=== PATIENT | female | born 1940 | race Caucasian/White ===

== ENCOUNTER 2017-05-09 10:25 | Day surgery (SDC) | payer MEDICARE, OTHER, SELFPAY ==
[2017-05-06 12:22] VITALS: BMI 31.7
[2017-05-09] VITALS (13 sets, daily range): BP systolic 128–199; BP diastolic 54–86; PULSE 73–99; RESP 12–22; TEMP 36.7–36.9; O2SAT 92–100
--- NOTE | 2017-05-09 12:56 | P.PCN_ITS ---
[facility] Procedure Note Procedure Note:: Colonoscopy Procedure Report: Colonoscopy with cold snare polypectomy, submucosal injection of Eleview, snare cautery and Endo Clip placement Endoscopist: Efrain Hickey II, MD Referring physician: Terry Green M.D. Date of Procedure: May 09, 2017 Equipment: Olympus 180 variable stiffness pediatric colonoscope Sedation: Fentanyl 200 mg IV/ Versed 9 mg IV Indication: Mrs. Blank is a 76-year-old female who is here for initial screening colonoscopy. She did have a recent Cologuard stool test and the results are not available. She was referred for colonoscopy. The patient reports no abdominal pain, weight loss, change in her bowel habits or rectal bleeding. She states that her first cousin had colon cancer. Procedure: Prior to the procedure, a history and physical exam was performed, and patient' s medications and allergies were reviewed. The risks, benefits and alternatives of the sedation and procedure were discussed with the patient. All questions were answered and informed consent was obtained. The patient was brought to the procedure room. Patient identification and proposed procedure were verified by the physician and the nurse. The patient was placed in a left lateral decubitus position and the scope was passed under direct vision. Throughout the procedure, the patient's blood pressure, pulse, and oxygen saturations were monitored continuously. The colonoscopy was accomplished without difficulty. The patient tolerated the procedure well. Findings: On digital rectal examination there was normal rectal tone. There were no external hemorrhoids. The colonoscope was introduced through the anal canal to the rectum and advanced to the cecum. The ileocecal valve and appendiceal orifice were identified. The scope was advanced a short distance into the ileum which appeared grossly normal. The scope was then withdrawn into the colon. There were 3 diminutive colon polyps identified in the cecum ?1 and transverse ?2. These ranged in size from 5-6 mm and were all removed via cold snare polypectomy. There were scattered diverticuli throughout the descending and sigmoid colon (LEFT colon). Within the rectosigmoid colon was a very large laterally spreading granular polyp that had some surface irregularity and probable dysplasia. This was approximately 30-35 mm in width (3.5 cm) and 30 mm in depth. The base of this was raised using submucosal injection of Eleview and approximately 9-10 cc were utilized. Next, snare cautery was utilized to completely excise this polyp in piecemeal resection. Subsequent to the complete removal, soft coagulation was used to cauterize the edges of the post polypectomy site. 3 endoclips were placed over the base or polypectomy site to close the site to provide sealing and prevention of post polypectomy bleeding. The rectum itself was normal. Upon retroflexion within the rectum there were grade 1 internal hemorrhoids. Impression: 1. Large 3.0-3.5 cm rectosigmoid sessile polyp (laterally spreading granular sessile polyp) status post piecemeal removal 2. 3 additional diminutive colon polyps 3. Left-sided diverticulosis 4. Grade 1 internal hemorrhoids Plan: I will follow-up the polyp histology and recommend repeat sigmoidoscopy in 3-6 months based upon the histologic findings of the very advanced adenomatous rectosigmoid polyp. I would recommend full screening/surveillance colonoscopy again in 2 years. I will discuss the findings with the patient and family.
== END 2017-05-09 13:25 | disposition home or self-care (01) ==
PROVIDERS: PCP Nurse Practitioner Family; Visit Provider Internal Medicine Gastroenterology
PROC: 0DJD8ZZ Inspection of Lower Intestinal Tract, Via Natural or Artificial Opening Endoscopic (ICD-10-PCS; CPT 45378; principal; 2017-05-09 11:30)
DX: Z12.11 Encounter for screening for malignant neoplasm of colon (principal); K63.5 Polyp of colon; K57.30 Diverticulosis of large intestine without perforation or abscess without bleeding; K64.0 First degree hemorrhoids
CPT/HCPCS: 45380; 45381; 88305

== ENCOUNTER → 2017-10-14 07:50 | Outpatient (CLI) | payer MEDICARE, OTHER, SELFPAY ==
[2017-10-14 09:03] LABS: Alanine Aminotransferase 43 U/L (12-78); Albumin Level 3.8 gm/dL (3.4-5.0); Albumin/Globulin Ratio 1.2 (1.1-1.8); Alkaline Phosphatase 52 U/L (46-116); Anion Gap 11.8 mEq/L (5-15); Aspartate Amino Transferase 27 U/L (15-37); Bilirubin,Total 0.6 mg/dL (0.2-1.0); Blood Urea Nitrogen 20 mg/dL (7-18); Calcium 8.9 mg/dL (8.5-10.1); Carbon Dioxide 29 mmol/L (21.0-32.0); Chloride 106 mmol/L (98-107); Chol/HDL Ratio 3.3 (1-3.5); Cholesterol 162 mg/dL (140-200); Creatinine,Serum 0.92 mg/dL (0.55-1.02); Estimated Glomerular Filt Rate 59 ml/min (>60); GFR (African American) 72 ML/MIN (>60); Globulin 3.2 gm/dl (1.3-3.2); Glucose 126 mg/dL (74-106); HDL Cholesterol 49 mg/dL (29-89); LDL Cholesterol 87 mg/dL (0-130); Potassium 4.8 mmoL/L (3.5-5.1); Sodium 142 mmol/L (136-145); Triglycerides 131 mg/dL (30-200); VLDL Cholesterol 26 mg/dL (0-40)
== END ==
PROVIDERS: Visit Provider Nurse Practitioner Family
DX: R73.9 Hyperglycemia, unspecified (principal); I10 Essential (primary) hypertension; E78.2 Mixed hyperlipidemia
CPT/HCPCS: 36415; 80053; 80061; 83036

== ENCOUNTER 2017-12-25 15:00 | Outpatient (RCR) | payer MEDICARE, OTHER, SELFPAY ==
--- NOTE | 2017-10-21 15:56 | HMH.PTOPEV ---
PT Outpatient Evaluation Rehab PT Outpatient Evaluation Start: 10/21/17 15:43 Freq: Status: Active Protocol: Document 10/21/17 15:43 MATI (Rec: 10/21/17 15:56 MATI [id number]) Electronically Signed By Moi Gonsalez, PT 10/21/17 15:43 Outpatient Therapy Subjective History Subjective History Pt reports insidious onset deconditioning and gait/ balance deficits over the last ~2-3 months. Pt reports multiple falls 'where I start leaning forward and can't slow down'. Pt also reports chronic L sided abdominal pain from previous episode of shingles which will 'cause me to james forward as well'. Pt also reports intermittent episodes of N&T in both feet. Chief Complaint Pain Weakness Symptom Type Sharp Stabbing Burning Numbness Tingling Symptoms Relieved By Prescription Meds Symptoms Aggravated By Standing Physical Activity Walking Prior Functional Limitations Standing Walking Current Functional Limitations Standing Squatting Walking Balance Symptom Description Constant but Variable Level of pain today (0-10) 1 Pain scale - at its best (0-10) 1 Pain scale - at its worst (0-10) 10 Hip/Knee Eval Gait Observation General Gait Pattern Observation Wide Based Gait Ataxic Gait Shuffling Step MMT left Hip Flexion Strength Grade 4 Good Hip Abduction Strength Grade 4- Good- Hip Adduction Strength Grade 4- Good- Hip Extension Strength Grade 4- Good- Hip External Rotation Strength Grade 4- Good- Hip Internal Rotation Strength Grade 4- Good- Knee Extension Strength Grade 4 Good Knee Flexion Strength Grade 4 Good right Hip Flexion Strength Grade 4- Good- Hip Abduction Strength Grade 4- Good- Hip Adduction Strength Grade 4- Good- Hip Extension Strength Grade 4- Good- Hip External Rotation Strength Grade 4- Good- Hip Internal Rotation Strength Grade 4- Good- Knee Extension Strength Grade 4 Good Knee Flexion Strength Grade 3+ Fair+ Balance Eval
== END 2017-12-25 15:01 | disposition home or self-care (01) ==
LOC: PT 15:00
PROVIDERS: PCP Nurse Practitioner Family; Visit Provider Internal Medicine Adolescent Medicine
DX: R26.9 Unspecified abnormalities of gait and mobility (principal); R29.6 Repeated falls
CPT/HCPCS: 97110; 97112; 97116; 97163

== ENCOUNTER → 2018-03-26 10:34 | Outpatient (CLI) | payer MEDICARE, SELFPAY ==
[2018-03-26 13:28] LABS: Alanine Aminotransferase 44 U/L (12-78); Albumin Level 3.9 gm/dL (3.4-5.0); Albumin/Globulin Ratio 1.2 (1.1-1.8); Alkaline Phosphatase 52 U/L (46-116); Anion Gap 12.8 mEq/L (5-15); Aspartate Amino Transferase 25 U/L (15-37); Bilirubin,Total 0.6 mg/dL (0.2-1.0); Blood Urea Nitrogen 17 mg/dL (7-18); Calcium 9.3 mg/dL (8.5-10.1); Carbon Dioxide 31 mmol/L (21.0-32.0); Chloride 103 mmol/L (98-107); Chol/HDL Ratio 3.2 (1-3.5); Cholesterol 168 mg/dL (140-200); Creatinine,Serum 0.87 mg/dL (0.55-1.02); Estimated Glomerular Filt Rate 63 ml/min (>60); GFR (African American) 76 ML/MIN (>60); Globulin 3.3 gm/dl (1.3-3.2); Glucose 119 mg/dL (74-106); HDL Cholesterol 52 mg/dL (29-89); LDL Cholesterol 85 mg/dL (0-130); Potassium 4.8 mmoL/L (3.5-5.1); Sodium 142 mmol/L (136-145); Total Protein,Serum 7.2 gm/dL (6.4-8.2); Triglycerides 153 mg/dL (30-200); VLDL Cholesterol 31 mg/dL (0-40)
[2018-03-26 14:21] LABS: Hemoglobin A1C 6.1 % (0.0-7.0)
== END ==
PROVIDERS: Visit Provider Nurse Practitioner Family
DX: R73.03 Prediabetes (principal); I10 Essential (primary) hypertension; E78.2 Mixed hyperlipidemia
CPT/HCPCS: 36415; 80053; 80061; 83036

== ENCOUNTER → 2018-04-21 10:14 | Outpatient (CLI) | payer MEDICARE, OTHER, SELFPAY ==
--- NOTE | 2018-04-21 10:18 | MM_ITS ---
MM Dig SC mamm unilat LT CAD Ordering Physician: Nicolasa Santos Patient Age: 77 years Female HISTORY no hormones no new complaints noncontributory family history previous right mastectomy. Prior breast reduction Family history. Mother with breast cancer age 66 COMPARISON: March 2017, February 2016, 2014, January 2014, 2012 TECHNIQUE: MLO cc axillary cc view left breast with CAD reviewed included FINDINGS: ...LEFT BREAST Stable Somewhat nodular pattern again seen throughout the left breast but is similar to multiple previous studies, unchanged since last year and stable since studies dating back to 2014. In 2012. No new findings. No dominant mass nor suspicious calcifications. There is a small metallic marker from previous or percutaneous or/stereotactic biopsy at the lateral left breast-stable IMPRESSION: . No new findings of significant concern. scattered nodular densities throughout the left breast are again observed with no significant change Ongoing annual follow-up will be important in this patient, and should be emphasized/encouraged BI-RADS Category: 2 Benign Finding(s) RECOMMENDED FOLLOW-UP: 1YR 1 YEAR FOLLOW-UP A letter has been sent to the patient regarding results of the study.)
== END ==
PROVIDERS: PCP Nurse Practitioner Family; Visit Provider Nurse Practitioner Family
DX: Z12.31 Encounter for screening mammogram for malignant neoplasm of breast (principal)
CPT/HCPCS: 77067

== ENCOUNTER → 2018-06-02 09:46 | Outpatient (POV) | payer MEDICARE, OTHER, SELFPAY | PROVIDERS: Visit Provider Dermatology | DX: Z00.00 Encounter for general adult medical examination without abnormal findings (principal) ==

== ENCOUNTER → 2019-01-25 09:13 | Outpatient (CLI) | payer MEDICARE, OTHER, SELFPAY ==
[2019-01-25 10:21] LABS: Hemoglobin A1C 6.3 % (0.0-7.0)
[2019-01-25 10:47] LABS: Alanine Aminotransferase 38 U/L (12-78); Albumin Level 3.9 gm/dL (3.4-5.0); Albumin/Globulin Ratio 1.1 (1.1-1.8); Alkaline Phosphatase 47 U/L (46-116); Anion Gap 12.5 mEq/L (5-15); Aspartate Amino Transferase 34 U/L (15-37); Bilirubin,Total 0.5 mg/dL (0.2-1.0); Blood Urea Nitrogen 18 mg/dL (7-18); Calcium 8.8 mg/dL (8.5-10.1); Carbon Dioxide 30 mmol/L (21.0-32.0); Chloride 105 mmol/L (98-107); Chol/HDL Ratio 3.3 (1-3.5); Cholesterol 161 mg/dL (140-200); Creatinine,Serum 0.88 mg/dL (0.55-1.02); Estimated Glomerular Filt Rate 62 ml/min (>60); GFR (African American) 75 ML/MIN (>60); Globulin 3.4 gm/dl (1.3-3.2); Glucose 120 mg/dL (74-106); HDL Cholesterol 49 mg/dL (29-89); LDL Cholesterol 85 mg/dL (0-130); Potassium 5.5 mmoL/L (3.5-5.1); Sodium 142 mmol/L (136-145); Total Protein,Serum 7.3 gm/dL (6.4-8.2); Triglycerides 137 mg/dL (30-200); VLDL Cholesterol 27 mg/dL (0-40)
== END ==
PROVIDERS: Visit Provider Nurse Practitioner Family
DX: R73.03 Prediabetes (principal); I10 Essential (primary) hypertension; E78.2 Mixed hyperlipidemia
CPT/HCPCS: 36415; 80053; 80061; 83036

== ENCOUNTER → 2019-09-03 11:45 | Outpatient (CLI) | payer MEDICARE, OTHER, SELFPAY ==
[2019-09-03 11:51] LABS: Microscopic, Urine URINE MICROSCOPIC (MICROSCOPIC)
[2019-09-03 13:07] LABS: Appearance,Urine CLEAR (Clear); Bilirubin,Urine Negative (Negative); Blood, Urine Negative (Negative); Color,Urine YELLOW (Yellow); Glucose,Urine (UA) Negative (Negative); Ketones,Urine Negative (Negative); Leukocyte Esterase,Urine 1+ (Negative); Nitrate,Urine Negative (Negative); Protein,Urine Negative (Negative); Urobilinogen,Urine 0.2 EU/dl (0.2)
[2019-09-03 13:21] LABS: Bacteria,Urine 1+ /lpf; WBC,Urine 20-50 #/hpf (0-3)
== END ==
PROVIDERS: Visit Provider Nurse Practitioner Family
DX: R30.0 Dysuria (principal)
CPT/HCPCS: 81001; 87086; 87088; 87186

== ENCOUNTER 2022-02-05 08:54 | Emergency (ER) | payer MEDICARE, OTHER, SELFPAY ==
[2022-02-05 10:24] VITALS: BP 180/85; PULSE 101; RESP 18; TEMP 36.8; O2SAT 96; BMI 36.9
--- NOTE | 2022-02-05 10:28 | EXP.UTC ---
Discharge Plan Disposition Patient Disposition: Home, Self-Care Condition: Good Prescriptions Prescriptions: No Action doxycycline hyclate 100 MG Capsule 100 mg PO BID pravastatin 40 MG tablet 40 mg PO DAILY gabapentin 800 MG tablet 800 mg PO QID calcium carbonate-vitamin D3 1 EACH Tab.Chew 1,000 ea PO DAILY metronidazole [MetroCream] 45 GM Cream..G. 45 g topical DAILY lisinopril 10 MG tablet 5 mg PO DAILY Referrals Follow up/Referrals: Antwon Acosta PA [Physician Power Brake Operator] - 02/06/22 9:30 am Nicolasa Santos APRN [Primary Care Provider] - See instructions Activity Restrictions/Add. Instructions Additional Instructions/Restrictions: Follow up with Cardiology as scheduled tomorrow in the clinic at 930am Take the medication that you was given in the [facility] with the instructions as written on the box Further care per Cardiology Clinic and you Family Doctor Return if needed Clinical Impressions Clinical Impression: Greater saphenous vein embolism Qualifiers: Laterality: left Qualified Code(s): I82.812 - Embolism and thrombosis of superficial veins of left lower extremity Discharge ED Provider: Seema Sherman [facility] HPI General Stated complaint: Left leg red, No accident Mode of Arrival: Ambulatory Source of Information: Patient Limitations: No Limitations Time Seen by Provider: 02/05/22 10:33 Description of Symptoms (Recalled from Triage Doc. by RN): pt comes in with red painful spot on left upper thigh. pt unsure of what happened HEENT Symptoms (Recalled from RN notes): No Resp Symptoms (Recalled from RN notes): No Skin Symptoms (Recalled from RN notes): Yes MS Symptoms (Recalled from RN notes): No Functional Status (Recalled from RN notes): n/a History of Present Illness Provider Complaint: Patient states that she noticed a spot on her left upper leg that kind of looks like bruise but she hasnt hit it or anything and states that this morning it felt like it was burning a little and she was concerned about it so she came in to get it checked Related Data Home Medications Medication Instructions Recorded Confirmed calcium carbonate 500 mg-vitamin 1,000 ea PO DAILY Supplement 05/06/17 05/28/19 D3 2.5 mcg (100 unit) chewable tablet doxycycline hyclate 100 mg capsule 100 mg PO BID ADULT ACNE 05/06/17 05/28/19 gabapentin 800 mg tablet 800 mg PO QID NERVE DAMAGE-SHINGLES 05/06/17 02/05/22 pravastatin 40 mg tablet 40 mg PO DAILY Cholesterol 05/06/17 02/05/22 metronidazole 0.75 % topical cream 45 g topical DAILY adult acne 05/09/17 05/28/19 (MetroCream) lisinopril 10 mg tablet 5 mg PO DAILY blood pressure 05/19/19 02/05/22 Allergies Allergy/AdvReac Type Severity Reaction Status Date / Time No Known Allergies Allergy Verified 02/05/22 10:27 Worker's Comp Is this a Worker's Comp case?: No PFSH PFSH Social History Smoking Status: Never smoker alcohol intake: never substance use type: denies use current occupational status: retired Travel in the last 8 weeks: None household members: none housing: house current occupational exposures/hazards: No caffeine: Yes ROS Obtained: Yes All systems reviewed & no additional complaints except as documented and Yes Systems reviewed as appropriate & no additional complaints except as documented Cardiovascular Cardiovascular: Reports system reviewed and no additional complaints, except as documented and Reports as per HPI Respiratory Respiratory: Reports system reviewed and no additional complaints, except as documented and Reports as per HPI Gastrointestinal Gastrointestingal: Reports system reviewed and no additional complaints, except as documented and as per HPI Musculoskeletal Musculoskeletal: Reports other Comments: bruised/red area on left lower upper leg denies injury Physical Exam General General appearance: alert and in no apparent distres
--- NOTE | 2022-02-05 10:32 | CA_ITS ---
FINAL REPORT TECHNIQUE: Color Doppler, duplex Doppler and compression sonography of the left lower extremity deep venous systems was performed. CLINICAL HISTORY: REDNESS LEFT THIGH X SEVERAL DAYS,NKI,PAIN FINDINGS: There is no evidence of deep venous thrombosis from the level of the groin to the calf. The veins are patent and compressible. There is superficial venous thrombosis of the greater saphenous vein. IMPRESSION: No evidence of deep venous thrombosis left lower extremity. Superficial venous thrombosis of the greater saphenous vein. Reviewed, Interpreted and Dictated by Jeancarlos Rose III, MD Transcribed by Spring Hicks Authenticated and [facility] [place] [place]
[2022-02-05 11:32] VITALS: BP 180/85; PULSE 101; RESP 18; TEMP 36.8
[2022-02-05 11:42] LABS: Chloride 102 mmol/L (98-107); Potassium 4.4 mmoL/L (3.5-5.1); Sodium 140 mmol/L (136-145)
[2022-02-05 11:45] LABS: Alanine Aminotransferase 30 U/L (12-78); Albumin Level 4.3 g/dl (3.5-5.0); Albumin/Globulin Ratio 1.3 (1.1-1.8); Alkaline Phosphatase 57 U/L (38-126); Anion Gap 13.4 mEq/L (5-15); Aspartate Amino Transferase 39 U/L (14-36); Bilirubin,Total 0.5 mg/dl (0.2-1.3); Blood Urea Nitrogen 19 mg/dl (7-17); Calcium 8.9 mg/dl (8.4-10.2); Carbon Dioxide 29 mmol/L (22.0-30.0); Creatinine Clearance Estimated 79 mL/min (50-200); Estimated Glomerular Filt Rate 69 ml/min (>60); GFR (African American) 83 ML/MIN (>60); Globulin 3.4 g/dL (1.3-3.2); Glucose 113 mg/dl (74-100); Total Protein,Serum 7.7 g/dl (6.3-8.2)
[2022-02-05 11:46] LABS: Basophils # 0.1 K/mm3 (0-0.2); Basophils % 1.1 % (0.1-2.0); Eosinophils # 0.3 K/mm3 (0.0-0.4); Eosinophils % 3.7 % (0.1-12.0); Hematocrit 49.5 % (37.0-47.0); Hemoglobin 16.3 g/dL (12.2-16.2); Lymphocytes # 1.6 K/mm3 (0.7-4.5); Lymphocytes % 17.7 % (10-50); Mean Corpuscular HGB Conc 32.9 g/dL (31.8-35.4); Mean Corpuscular Hemoglobin 29.8 pg (27.0-31.2); Mean Corpuscular Volume 90.6 fl (81-99); Monocytes # 0.4 K/mm3 (0.1-1.0); Monocytes % 4.7 % (1.7-9.3); Neutrophils # 6.6 K/mm3 (1.8-7.8); Neutrophils % 72.8 % (37.0-80.0); Platelet Count 591 K/mm3 (142-424); Red Blood Count 5.47 M/mm3 (4.20-5.40); Red Cell Distribution Width 16.4 % (11.5-17.5)
== END 2022-02-05 11:35 | disposition home or self-care (01) ==
PROVIDERS: Emergency Provider Nurse Practitioner; PCP Nurse Practitioner Family
DX: I82.812 Embolism and thrombosis of superficial veins of left lower extremity (principal)
CPT/HCPCS: 80053; 85025; 93971; 99283

== ENCOUNTER → 2022-02-11 09:40 | Outpatient (CLI) | payer MEDICARE, OTHER, SELFPAY ==
--- NOTE | 2022-02-11 09:41 | CA_ITS ---
APPROVED REPORT EXAM: Comprehensive 2D, Doppler, and color-flow Echocardiogram Chairman & Ceo: April Royal RVT Ht: 5 ft 9 in Wt: 235lbs BSA: 2.21 BP: 178/70 mmHg Indications: MURMUR,HLD,DM,HTN,ABN EKG 2D Dimensions LVOT 2.21 cm (M/F) 1.5-2.5 M-Mode Dimensions RVDd 2.61 cm (0.9-2.6) LA Diam 3.36 cm (1.9-4.0) LVDd 4.01 cm (3.5-5.7) Ao Diam 3.43 cm (2.0-3.7) LVDs 1.98 cm (3.5-5.7) IVSd 1.17 cm (0.6-1.1) PWd 0.97 cm (0.6-1.1) EF (Teich) 82.40% FS 50.60% EDV (Teich) 70.40 mL TAPSE 1.70 (<1.7) ESV (Teich) 12.40 mL LV Diastology E Decel Time 150.00 (160-240 msec) E/A Ratio 1.3 MED E' 7.10 (< 7 cm/sec) E'/MED E' Ratio 11.30 (>14) LAT E' 6.20 (<10 cm/sec) E/LAT E' Ratio 12.94 (>14) Aortic Valve AO Peak GR. 5.60 mmHg Mitral Valve MV E Max Anton. 80.00 (40-130 cm/s) MV A Velocity 64.00 (40-130 cm/s) E/A Ratio 1.26 MV Decel. Time 150.00 (160-240 ms) MV PHT 44.00 ms Pulmonary Valve PV Peak Velocity 124.00 (50-150 cm/s) Tricuspid Valve TR P. Velocity 161.00 cm/s RAP Estimate 10.00 mmHg RVSP 20.40 mmHg Left Ventricle Left atrium is mildly enlarged, left ventricle is normal size, hyperdynamic left ventricular systolic function, estimated ejection fraction over 65% with no regional wall motion abnormality, grade 1 diastolic dysfunction seen without tissue Doppler evidence of raise left atrial pressure. Right Ventricle Right atrium and right ventricle are normal size and contractility. Aortic Valve Aortic valve is minimally thickened and fibrosed there is no aortic stenosis or aortic insufficiency. Mitral Valve Mitral valve is minimally thickened, there is mild mitral regurgitation Tricuspid Valve Tricuspid grossly normal, there is mild tricuspid regurgitation, tricuspid regurgitation jet velocity is inadequate for calculation of the right ventricular systolic pressure. Pulmonic Valve Pulmonic valve is poorly visualized. Great Vessels Aortic root is normal size. Inferior vena cava is normal size with normal inspiratory collapse. Pericardium There is small pericardial effusion and anterior echo-free space seen. Conclusion 1. Mildly enlarged left atrium, normal left ventricular size mild concentric left ventricular hypertrophy, hyperdynamic left ventricular systolic function, estimated ejection fraction over 65% with no regional wall motion abnormality, grade 1 diastolic dysfunction seen without tissue Doppler evidence of raise left atrial pressure. 2. Mild mitral and tricuspid regurgitation. 3. Small pericardial effusion noted and anterior echo-free space seen. 4. Inferior vena cava is normal size with normal inspiratory collapse. Electronically signed by : Raghu Yi MD 02/11/2022 17:02:14
== END ==
PROVIDERS: PCP Nurse Practitioner Family; Visit Provider Physician Assistant
DX: E78.5 Hyperlipidemia, unspecified (principal); I10 Essential (primary) hypertension; I82.812 Embolism and thrombosis of superficial veins of left lower extremity; R01.1 Cardiac murmur, unspecified; R94.31 Abnormal electrocardiogram [ECG] [EKG]
CPT/HCPCS: 93306

== ENCOUNTER → 2022-03-01 13:53 | Outpatient (CLI) | payer MEDICARE, OTHER, SELFPAY ==
[2022-03-01 14:44] LABS: Basophils # 0.1 K/mm3 (0-0.2); Basophils % 1.1 % (0.1-2.0); Eosinophils # 0.3 K/mm3 (0.0-0.4); Eosinophils % 4.2 % (0.1-12.0); Hematocrit 50.4 % (37.0-47.0); Hemoglobin 15.9 g/dL (12.2-16.2); Lymphocytes # 1.6 K/mm3 (0.7-4.5); Lymphocytes % 19.6 % (10-50); Mean Corpuscular HGB Conc 31.6 g/dL (31.8-35.4); Mean Corpuscular Hemoglobin 29.2 pg (27.0-31.2); Mean Corpuscular Volume 92.2 fl (81-99); Mean Platelet Volume 8.7 fl (7.4-10.4); Monocytes # 0.4 K/mm3 (0.1-1.0); Monocytes % 4.9 % (1.7-9.3); Neutrophils # 5.7 K/mm3 (1.8-7.8); Neutrophils % 70.3 % (37.0-80.0); Platelet Count 683 K/mm3 (142-424); Red Blood Count 5.47 M/mm3 (4.20-5.40); Red Cell Distribution Width 16.4 % (11.5-17.5); White Blood Count 8.1 K/mm3 (4.8-10.8)
[2022-03-12 02:53] LABS: Interpretation: Negative (.)
== END ==
PROVIDERS: PCP Nurse Practitioner Family; Visit Provider Internal Medicine Medical Oncology
DX: D75.81 Myelofibrosis (principal)
CPT/HCPCS: 36415; 81206; 81270; 85025

== ENCOUNTER 2022-05-16 18:04 | Observation (INO) | payer MEDICARE, OTHER, SELFPAY ==
[2022-05-16] VITALS (11 sets, daily range): BP systolic 129–162; BP diastolic 44–63; PULSE 69–96; RESP 13–16; TEMP 36.8; O2SAT 91–96; BMI 34.9; BMI 35.2
--- NOTE | 2022-05-16 18:13 | ECG_ITS ---
APPROVED REPORT Exam: Resting ECG HR:71 bpm ECG Measurements Heart Rate 71 AXES IN 181 P 78 QRSd 98 QRS 66 QT 423 T 76 QTc 446 Conclusion SINUS RHYTHM LOW QRS VOLTAGE IN PRECORDIAL LEADS [QRS DEFLECTION < 1.0 mV IN CHEST LEADS] BORDERLINE ECG UNCONFIRMED REPORT Electronically signed by : Terry Green MD 05/17/2022 20:56:51
[2022-05-16 18:14] LABS: POC Glucose,Bedside 120 (70-110)
[2022-05-16 19:36] LABS: Basophils # 0.1 K/mm3 (0-0.2); Basophils % 0.8 % (0.1-2.0); Eosinophils # 0.4 K/mm3 (0.0-0.4); Eosinophils % 2.3 % (0.1-12.0); Hematocrit 48.4 % (37.0-47.0); Hemoglobin 15.5 g/dL (12.2-16.2); Lymphocytes # 4.8 K/mm3 (0.7-4.5); Mean Corpuscular HGB Conc 32.1 g/dL (31.8-35.4); Mean Corpuscular Hemoglobin 29.1 pg (27.0-31.2); Mean Corpuscular Volume 90.8 fl (81-99); Mean Platelet Volume 9.1 fl (7.4-10.4); Monocytes # 0.7 K/mm3 (0.1-1.0); Monocytes % 4.4 % (1.7-9.3); Neutrophils % 62.4 % (37.0-80.0); Platelet Count 823 K/mm3 (142-424); Red Blood Count 5.33 M/mm3 (4.20-5.40)
[2022-05-16 19:46] LABS: Chloride 106 mmol/L (98-107); MANUAL DIFFERENTIAL MANUAL DIFFERENTIAL (MANUAL DIFF); Potassium 3.8 mmoL/L (3.5-5.1); Sodium 139 mmol/L (136-145)
[2022-05-16 19:49] LABS: Alanine Aminotransferase 30 U/L (12-78); Albumin Level 4.2 g/dl (3.5-5.0); Albumin/Globulin Ratio 1.4 (1.1-1.8); Alkaline Phosphatase 55 U/L (38-126); Anion Gap 9.8 mEq/L (5-15); Aspartate Amino Transferase 43 U/L (14-36); Bilirubin,Total 0.7 mg/dl (0.2-1.3); Blood Urea Nitrogen 25 mg/dl (7-17); Calcium 8.6 mg/dl (8.4-10.2); Carbon Dioxide 27 mmol/L (22.0-30.0); Creatinine Clearance Estimated 76 mL/min (50-200); Estimated Glomerular Filt Rate 53 ml/min (>60); GFR (African American) 64 ML/MIN (>60); Glucose 176 mg/dl (74-100); Total Protein,Serum 7.2 g/dl (6.3-8.2)
[2022-05-16 20:12] LABS: Troponin I < 0.01 ng/ml (0.00-0.034)
[2022-05-16 20:18] LABS: Eosinophils % 1 % (0-3); Lymphocytes % 36 % (10-50); Monocytes % 4 % (2-9); Neutrophils % 59 % (42-76); Total Cells Counted 100
[2022-05-16 20:19] LABS: Ovalocytes 1+; Platelet Estimate Marked Increase
--- NOTE | 2022-05-16 21:09 | HMH.EDSYNC ---
Discharge Plan Disposition Patient Disposition: Admitted As Inpatient Chief Complaint: Syncope Clinical Impressions Clinical Impression: Syncope, Ankle fracture, left Discharge ED Provider: Jose (ED),Brian Washington Syncope HPI General Chief Complaint: Syncope Stated Complaint: Syncopal Time Seen by Provider: 05/16/22 21:09 Mode of Arrival: EMS Source of Information: Patient, Relative, EMS and Medical Record Limitations: No Limitations Description of Symptoms (Recalled from ER Triage Doc. by RN): pt to ED from home via EMS after having a syncopal episode when getting her mail. per EMS pt assisted herself to the ground and had no LOC. pt was assisted by a [employer] delivery aide in the area. per ems pt had an episode with them where she became cool, diaphoretic nauseous and vomiting. pt denies any chest pain or SOB. pt does report she got her pneumonia vaccine today History of Present Illness HPI narrative: pt with acute syncopal episode this pm with diaphoresis and n/v w/o chest pain MD complaint: almost passed out Onset (ago): hour(s) Prodromal symptoms: none Witnessed: no Current symptoms: back to baseline Related Data Home Medications Medication Instructions Recorded Confirmed calcium carbonate 500 mg-vitamin 1,000 ea PO DAILY Supplement 05/06/17 03/05/22 D3 2.5 mcg (100 unit) chewable tablet gabapentin 800 mg tablet 800 mg PO QID NERVE DAMAGE-SHINGLES 05/06/17 03/05/22 pravastatin 40 mg tablet 40 mg PO DAILY Cholesterol 05/06/17 03/05/22 Previous Rx's Medication Instructions Recorded aspirin 81 mg tablet,delayed 81 mg PO DAILY #30 tabs 02/12/22 release (Adult Low Dose Aspirin) diltiazem HCl 120 mg 120 mg PO DAILY #30 caps 02/12/22 capsule,extended release 24 hr lisinopril 10 mg tablet 10 mg PO DAILY 90 days #90 tabs 03/05/22 Allergies Allergy/AdvReac Type Severity Reaction Status Date / Time No Known Allergies Allergy Verified 03/05/22 11:06 [facility] Disclaimer: The information contained in this section may have been updated after the patient was seen, as this information can be updated by other users. Medical History Abnormal electrocardiogram [ECG] [EKG] Breast cancer Elevated hemoglobin Elevated platelet count HLD (hyperlipidemia) HTN (hypertension) Murmur Surgical History H/O subtotal mastectomy of right breast Social History Smoking Status: Never smoker alcohol intake: never substance use type: denies use current occupational status: retired Travel in the last 8 weeks: None household members: none housing: house current occupational exposures/hazards: No caffeine: Yes ROS Obtained: Yes All systems reviewed & no additional complaints except as documented Physical Exam General General appearance: alert Head Head exam: normocephalic Eye Eye exam: Present PERRL and EOMI; Absent scleral icterus ENT ENT exam: Present mucous membranes moist Neck Neck exam: Present trachea midline Respiratory Respiratory exam: Absent respiratory distress Cardiovascular Cardiovascular exam: Present regular rate, systolic murmur and +S4 Abdominal Exam Abdominal exam: Present soft Expanded Lower Extremity Exam Left: Hip/Pelvis exam: Present pelvis stable Ankle exam: Present tenderness and swelling; Absent full ROM Neurovascular/Tendon exam: Absent pulse deficit Gait: unable to bear weight Neurological Exam Neurological exam: Present alert, oriented X3 and CN II-XII intact Psychiatric Psychiatric exam: Present normal affect Skin Skin exam: Absent rash Medical Decision Making Medical Records Medical records reviewed: Yes I reviewed the patient's medical records. Dion Inquiry Pt receiving controlled substance: No Vital Signs: 05/16/22 18:05 05/16/22 18:34 05/16/22 21:23 Asim
--- NOTE | 2022-05-16 21:41 | XR_ITS ---
PROCEDURE INFORMATION: Exam: XR Left Ankle Exam date and time: 05/16/2022 9:44 PM Age: 81 years old Clinical indication: Injury or trauma; Fall; Blunt trauma; Ankle; Left; Additional info: Fall, pain TECHNIQUE: Imaging protocol: Radiologic exam of the Left ankle. Views: 3 or more views. COMPARISON: CA VENOUS DOPPLER LE LT 02/05/2022 10:41 AM FINDINGS: Bones/joints: Obliquely oriented fracture of the distal fibula beginning near the level of the talar dome and extending approximately 3.8 cm proximally. Enthesophyte at the Achilles tendon insertion. Soft tissues: Soft tissue swelling involving the ankle. IMPRESSION: Obliquely oriented fracture of the distal fibula beginning near the level of the talar dome and extending approximately 3.8 cm proximally.
--- NOTE | 2022-05-16 21:41 | XR_ITS ---
PROCEDURE INFORMATION: Exam: XR Left Foot Exam date and time: 05/16/2022 9:46 PM Age: 81 years old Clinical indication: Injury or trauma; Fall; Blunt trauma; Foot; Left; Additional info: Fall, pain TECHNIQUE: Imaging protocol: Radiologic exam of the Left foot. Views: 3 or more views. COMPARISON: CR XR ANKLE LT MIN 3V 05/16/2022 9:44 PM FINDINGS: Bones/joints: Obliquely oriented fracture through the fibula which is partially visualized. Enthesophyte at the Achilles tendon insertion. Soft tissues: Soft tissue swelling involving the ankle. IMPRESSION: Obliquely oriented fracture through the fibula which is partially visualized.
[2022-05-16 21:43] LABS: Appearance,Urine CLEAR (Clear); Bilirubin,Urine Negative (Negative); Blood, Urine Negative (Negative); Color,Urine YELLOW (Yellow); Glucose,Urine (UA) Negative (Negative); Ketones,Urine 1+ (Negative); Leukocyte Esterase,Urine TRACE (Negative); Microscopic, Urine URINE MICROSCOPIC (MICROSCOPIC); Nitrate,Urine Negative (Negative); Protein,Urine Negative (Negative); Specific Gravity, Urine >= 1.030 (1.005-1.030); Urobilinogen,Urine 0.2 EU/dl (0.2)
--- NOTE | 2022-05-16 21:52 | PC.NURSE ---
Dr. Garcia s/w Dr. Pruitt for admission.
[2022-05-16 21:54] LABS: Bacteria,Urine 1+ /lpf; Mucus,Urine 1+ /lpf
--- NOTE | 2022-05-16 22:03 | PC.NURSE ---
pt back from xrays
[2022-05-16 22:09] LABS: Coronavirus 19, PCR Not Detected (NotDetected); Influenza A, PCR Not Detected (NotDetected); Influenza B, PCR Not Detected (NotDetected)
--- NOTE | 2022-05-16 23:15 | XR_ITS ---
PROCEDURE INFORMATION: Exam: XR Left Tibia and Fibula Exam date and time: 05/16/2022 11:30 PM Age: 81 years old Clinical indication: Abnormal findings; Abnormal imaging study; L ankle; Additional info: Post splinting TECHNIQUE: Imaging protocol: Radiologic exam of the Left tibia and fibula. Views: 2 views. COMPARISON: CR XR FOOT LT MIN 3V 05/16/2022 9:46 PM FINDINGS: Bones/joints: There is a nondisplaced oblique mildly comminuted fracture of the distal fibula. Osseous alignment remains normal. Mild degenerative changes are noted in the left knee. Soft tissues: Normal. Other findings: Casting material is now place. IMPRESSION: Nondisplaced distal fibula fracture with casting material now in place.
--- NOTE | 2022-05-16 23:19 | PC.NURSE ---
placed short leg splint to LLE. New order for post splinting tib/fib
[2022-05-16 23:23] LABS: Troponin I < 0.01 ng/ml (0.00-0.034)
[2022-05-17] VITALS (10 sets, daily range): BP systolic 143–167; BP diastolic 57–71; PULSE 61–82; RESP 16–20; TEMP 36.4–36.7; O2SAT 96–98; BMI 35.2; BMI 35.1; BMI 34.8
--- NOTE | 2022-05-17 02:20 | PC.NURSE ---
Admission completed on pt. Pt denies dizziness at this time. Pt A&OX4. LS clear. Pt on RA, tolerating well. Abdomen soft and non-tender. Pt voids per bedpan. Splint noted to LLE, toes pink. +2 Pitting edema noted to R foot. 20G IV in left hand patent and intact. Limb alert bracelet placed on pt right arm for hx of right mastectomy. Pt reports having Pneumonia vaccine before passing out last night. Call light in place, bed alarm on and functioning. Report given to S Call RN.
--- NOTE | 2022-05-17 02:29 | PC.NURSE ---
Pt refused 3rd troponin labwork to be drawn
--- NOTE | 2022-05-17 02:57 | PC.NURSE ---
No acute changes.
[2022-05-17 06:34] LABS: Basophils # 0.1 K/mm3 (0-0.2); Basophils % 0.4 % (0.1-2.0); Eosinophils # 0.2 K/mm3 (0.0-0.4); Eosinophils % 1.4 % (0.1-12.0); Hematocrit 44.3 % (37.0-47.0); Hemoglobin 14.2 g/dL (12.2-16.2); Lymphocytes # 1.9 K/mm3 (0.7-4.5); Lymphocytes % 15.9 % (10-50); Mean Corpuscular HGB Conc 32.1 g/dL (31.8-35.4); Mean Corpuscular Hemoglobin 28.8 pg (27.0-31.2); Mean Corpuscular Volume 89.7 fl (81-99); Mean Platelet Volume 8.5 fl (7.4-10.4); Monocytes # 0.4 K/mm3 (0.1-1.0); Monocytes % 3.5 % (1.7-9.3); Neutrophils # 9.5 K/mm3 (1.8-7.8); Neutrophils % 78.8 % (37.0-80.0); Platelet Count 579 K/mm3 (142-424); Red Blood Count 4.94 M/mm3 (4.20-5.40); White Blood Count 12.1 K/mm3 (4.8-10.8)
[2022-05-17 06:35] LABS: Chloride 109 mmol/L (98-107)
[2022-05-17 06:36] LABS: Potassium 3.9 mmoL/L (3.5-5.1); Sodium 141 mmol/L (136-145)
[2022-05-17 06:39] LABS: Anion Gap 7.9 mEq/L (5-15); Blood Urea Nitrogen 21 mg/dl (7-17); Carbon Dioxide 28 mmol/L (22.0-30.0); Creatinine Clearance Estimated 75 mL/min (50-200); Estimated Glomerular Filt Rate 69 ml/min (>60); GFR (African American) 83 ML/MIN (>60); Glucose 111 mg/dl (74-100)
--- NOTE | 2022-05-17 07:36 | HMH.PHAINT1 ---
Pharmacy Intervention Comments: MEDICATION RECONCILIATION COMPLETED ON PATIENT USING EXTERNAL FILL HISTORY FROM PHARMACY. -GUILHERME SNYDER, FELICITAD
--- NOTE | 2022-05-17 08:36 | MR_ITS ---
FINAL REPORT CLINICAL HISTORY: syncope yesterday COMPARISON: none FINDINGS: Multiple projection images of the brain arterial vasculature were obtained without contrast. There is motion artifact on many of the images decreasing sensitivity of this exam. The raw data images were also reviewed. The distal internal carotid, distal vertebral and basilar arteries have an unremarkable appearance without evidence of significant stenosis or occlusion. The proximal anterior, middle and posterior cerebral arteries have an unremarkable appearance. There is no evidence of significant stenosis or major branch occlusion. No aneurysm or vascular malformation is identified. IMPRESSION: Unremarkable MR angiogram of the head. Reviewed, Interpreted and Dictated by Jeancarlos Rose III, MD Transcribed by Bekah You Authenticated and [facility]
--- NOTE | 2022-05-17 08:41 | CA_ITS ---
APPROVED REPORT EXAM: Comprehensive 2D, Doppler, and color-flow Echocardiogram Cod Clerk: April Royal RVT Ht: 5 ft 8 in Wt: 237lbs BSA: 2.20 BP: 162/61 mmHg Indications: SYNCOPE,ABN EKG,MURMUR,HTN,HLD TDS 2D Dimensions LVOT 2.16 cm (M/F) 1.5-2.5 M-Mode Dimensions RVDd 2.81 cm (0.9-2.6) LA Diam 3.62 cm (1.9-4.0) LVDd 4.04 cm (3.5-5.7) Ao Diam 2.92 cm (2.0-3.7) LVDs 2.00 cm (3.5-5.7) IVSd 1.23 cm (0.6-1.1) PWd 0.94 cm (0.6-1.1) EF (Teich) 82.30% FS 50.50% EDV (Teich) 71.70 mL ESV (Teich) 12.70 mL LV Diastology E Decel Time 150.00 (160-240 msec) E/A Ratio 1.4 MED E' 5.70 (< 7 cm/sec) E'/MED E' Ratio 16.35 (>14) LAT E' 6.70 (<10 cm/sec) E/LAT E' Ratio 13.91 (>14) Aortic Valve AO Peak GR. 3.50 mmHg Mitral Valve MV E Max Anton. 93.00 (40-130 cm/s) MV A Velocity 68.00 (40-130 cm/s) E/A Ratio 1.37 MV Decel. Time 150.00 (160-240 ms) MV PHT 44.00 ms Pulmonary Valve PV Peak Velocity 107.00 (50-150 cm/s) Tricuspid Valve TR P. Velocity 167.00 cm/s RAP Estimate 10.00 mmHg RVSP 21.20 mmHg Left Ventricle Left atrium is mildly enlarged, left ventricle is normal size mild concentric left ventricular hypertrophy, estimated ejection fraction 55% with no regional wall motion abnormality, diastolic parameters are inconclusive. Right Ventricle Right atrium and right ventricle are normal size and contractility. Aortic Valve Aortic valve is minimally thickened and fibrosed there is no aortic stenosis or aortic insufficiency. Mitral Valve Mitral valve is grossly normal, there is trace mitral regurgitation. Tricuspid Valve Tricuspid valve grossly normal, there is trace tricuspid regurgitation, tricuspid regurgitation jet velocity is inadequate for calculation of the right ventricular systolic pressure. Pulmonic Valve Pulmonic valve is poorly visualized. Great Vessels Aortic root is normal size. Inferior vena cava is normal size with normal inspiratory collapse. Pericardium No significant pericardial effusion noted. Conclusion 1. Normal left ventricular size mild concentric left ventricular hypertrophy, estimated ejection fraction 55% with no regional wall motion abnormality, diastolic parameters are inconclusive. 2. Trace mitral and tricuspid regurgitation. 3. No significant pericardial effusion noted. 4. Inferior vena cava is normal size with normal inspiratory collapse. Electronically signed by : Raghu Yi MD 05/17/2022 16:08:18
--- NOTE | 2022-05-17 08:41 | CA_ITS ---
FINAL REPORT TECHNIQUE: Color Doppler, duplex Doppler and shin scale sonography of the bilateral neck arterial vasculature was performed. Velocities were measured in the carotid arteries. Stenosis evaluation based on the validated velocity criteria. CLINICAL HISTORY: SYNCOPE,HTN,HLD FINDINGS: The peak systolic velocity of the right common carotid artery is 112 cm/s. The peak systolic velocity of the right internal carotid artery is 120 cm/s and end diastolic velocity 19 cm/s. The ICA/CCA ratio is 1.3. A small amount of plaque is present. The right external carotid artery is patent. The right vertebral artery is patent with antegrade flow. The peak systolic velocity of the left common carotid artery is 110 cm/s. The peak systolic velocity of the left internal carotid artery is 120 cm/s and end diastolic velocity 19 cm/s. The ICA/CCA ratio is 1.3. A small amount of plaque is present. The left external carotid artery is patent.The left vertebral artery is patent with antegrade flow. IMPRESSION: Less than 50% bilateral carotid stenoses. Bilateral patent vertebral arteries with antegrade flow. If indicated, CTA or MRA could further evaluate. Reviewed, Interpreted and Dictated by Jeancarlos Rose III, MD Transcribed by Spring Hicks Authenticated and [facility]
--- NOTE | 2022-05-17 08:46 | EXP.HP ---
History of Present Illness *Admission Date: 05/17/22 *Reason for visit:: Syncopal episode/fibula fracture *History of present illness: 81-year-old white female with history of hypertension and history of previous presyncopal episodes who was in our office yesterday, May 16 for routine checkup. No medications were adjusted, she did receive the Prevnar 20 vaccine, and went home. She was at home and feeling well until she went out to check her mail and on the walk to her mailbox became very dizzy, which she describes as a combination of orthostatic type lightheadedness and some vertiginous spinning. She was able to make it to the mailbox but all she remembers at that point is hugging the mailbox while she was falling. She was assisted by several folks who happened to be passing by and they reported that she actually was syncopal with loss of consciousness for a few moments. EMS brought her to the hospital. In the ER she was alert, oriented and vital signs normalized. Work-up revealed fibula fracture on the left side which is nondisplaced. Labs were otherwise unremarkable with normal troponins. EKG showed normal sinus rhythm. She was admitted for further evaluation. She currently feels well. [facility] Disclaimer: The information contained in this section may have been updated after the patient was seen, as this information can be updated by other users. Medical History (Updated 05/17/22 @ 01:48 by Charu Johnson RN) Abnormal electrocardiogram [ECG] [EKG] Breast cancer Elevated hemoglobin Elevated platelet count Hernia HLD (hyperlipidemia) HTN (hypertension) Murmur Surgical History (Updated 05/17/22 @ 01:48 by Charu Johnson RN) H/O breast reconstruction H/O subtotal mastectomy of right breast Family History Family history of cancer Hyperlipidemia Lung cancer Social History Smoking Status: Never smoker alcohol intake: never substance use type: denies use current occupational status: retired Travel in the last 8 weeks: None household members: none housing: house current occupational exposures/hazards: No caffeine: Yes Review of Systems Review of Systems Review of systems:: pertinent systems reviewed and negative unless documented below Review of systems (narrative): Denies recent GI symptoms. She reports that she does not drink a lot of water because she is concerned because of bladder dysfunction that she would have to urinate frequently. Meds Home Medications and Allergies Home Medications Medication Instructions Recorded Confirmed Type calcium carbonate 500 mg-vitamin 1,000 ea PO DAILY Supplement 05/06/17 05/17/22 History D3 2.5 mcg (100 unit) chewable tablet gabapentin 800 mg tablet 800 mg PO QID NERVE DAMAGE-SHINGLES 05/06/17 05/17/22 History pravastatin 40 mg tablet 40 mg PO HS Cholesterol 05/06/17 05/17/22 History aspirin 81 mg tablet,delayed 81 mg PO DAILY #30 tabs 02/12/22 05/17/22 Rx release (Adult Low Dose Aspirin) diltiazem HCl 120 mg 120 mg PO DAILY #30 caps 02/12/22 05/17/22 Rx capsule,extended release 24 hr lisinopril 10 mg tablet 10 mg PO DAILY 90 days #90 tabs 03/05/22 05/17/22 Rx New Prescriptions to Start Prescriptions: Allergies Allergy/AdvReac Type Severity Reaction Status Date / Time No Known Allergies Allergy Verified 03/05/22 11:06 Exam Data for Last 24 hours Vital signs and Labs for Last 24 Hours: Temp Pulse Resp BP Pulse Ox 97.5 F L 77 20 167/57 H 98 05/17/22 08:00 05/17/22 08:00 05/17/22 08:00 05/17/22 08:00 05/17/22 08:00 Laboratory Results - last 24 hr 05/16/22 18:06: WBC 16.0 H, RBC 5.33, Hgb 15.5, Hct 48.4 H, MCV 90.8, MCH 29.1, MCHC 32.1, RDW 16.0, Plt Count 823 H, MPV 9.1, Neut % (Auto) 62.4, Lymph % (Auto) 30.0, [place] % (Auto) 4.4, Eos % (Auto) 2.3, Baso % (Auto) 0.8, Neut # (Auto) 10.0 H, L
[2022-05-17 09:24] LABS: Magnesium 2.1 mg/dl (1.6-2.3)
[2022-05-17 09:56] LABS: Thyroid Stimulating Hormone 0.58 uIU/mL (0.465-4.68)
--- NOTE | 2022-05-17 10:07 | EXP.CARD.CON ---
History of Present Illness History of Present Illness Consult date: 05/17/22 Requesting physician: Terry Green Chief complaint: syncope, ankle fracture Additional Medical History:: 1. Hypertension A. Echo, 02/11/22, 1.? Mildly enlarged left atrium, normal left ventricular size mild concentric left ventricular hypertrophy, hyperdynamic left ventricular systolic function, estimated ejection fraction over 65% with no regional wall motion abnormality, grade 1 diastolic dysfunction seen without tissue Doppler evidence of raise left atrial pressure. 2.? Mild mitral and tricuspid regurgitation. 3.? Small pericardial effusion noted and anterior echo-free space seen. 4.? Inferior vena cava is normal size with normal inspiratory collapse 2. Hyperlipidemia 3. History of elevated hemoglobin and elevated platelet, evaluation per Dr. Mcgarry, 2021, possible myeloproliferative disorder. A. 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 History of abnormal EKG 5. History of breast cancer 6. Colonic adenoma, 2018 A. Colonoscopy, 05/2019, 1.? Diminutive colonic polyps x6 2.? Left-sided diverticulosis with some colonic fibrosis from prior colitis (at the watershed region of colon suggestive of prior ischemic colitis) 3.? Grade 1-2 internal hemorrhoids History of present illness: 81-year-old white female with history of hypertension and history of previous presyncopal episodes who was in our office yesterday, May 16 for routine checkup.? No medications were adjusted, she did receive the Prevnar 20 vaccine, and went home. She was at home and feeling well until she went out to check her mail and on the walk to her mailbox became very dizzy, which she describes as a combination of orthostatic type lightheadedness and some vertiginous spinning.? She was able to make it to the mailbox but all she remembers at that point is hugging the mailbox while she was falling.? She was assisted by several folks who happened to be passing by and they reported that she actually was syncopal with loss of consciousness for a few moments. EMS brought her to the hospital.? In the ER she was alert, oriented and vital signs normalized.? Work-up revealed fibula fracture on the left side which is nondisplaced.? Labs were otherwise unremarkable with normal troponins.? EKG showed normal sinus rhythm.? She was admitted for further evaluation.? She currently feels well. The above per Dr. Green Events as noted above confirmed with patient. She denies any chest pain, pressure, tightness or palpitations yesterday or recently. Patient's daughter is with her and relates that patient has a shuffling type gait which may account for her recent falls. Patient uses her walker sporadically. Echocardiogram today essentially unchanged from 4 months ago. Non-smoker No history of coronary artery disease Presumed diabetic but refuses to take metformin [facility] Disclaimer: The information contained in this section may have been updated after the patient was seen, as this information can be updated by other users. Medical History (Updated 05/17/22 @ 01:48 by Charu Johnson RN) Abnormal electrocardiogram [ECG] [EKG] Breast cancer Elevated hemoglobin Elevated platelet count Hernia HLD (hyperlipidemia) HTN (hypertension) Murmur Surgical History (Updated 05/17/22 @ 01:48 by Charu Johnson RN) H/O breast reconstruction H/O subtotal mastectomy of right breast Family History Family history of cancer Hyperlipidemia Lung cancer Social History Smoking Status: Never smoker alcohol intake: never substance use type: denies use current occupational status: retired Travel in the last 8 weeks: None household members: none housing: house current occupational exposures/hazards: No caffeine: Yes Exam Data for Last 24 hours Vital signs and Labs for Last 24 H
[2022-05-17 10:15] LABS: Vitamin B12 442 pg/mL (239-931)
--- NOTE | 2022-05-17 10:26 | EXP.ORTH.CON ---
History of Present Illness *Admission Date: 05/17/22 *Reason for visit:: Left ankle fracture *History of present illness: Mrs. Blank is an 81 year old female patient admitted to the acute inpatient service after a syncopal episode at home. She states that she was walking to her mailbox when she became dizzy, causing her to fall. She was brought to the [facility] emergency department via EMS. She reported left ankle at that time and subsequent x-ray demonstrated a nondisplaced distal fibular fracture. She was placed in a short leg splint and admitted to the inpatient service for further work-up of her syncope. This morning she is lying comfortably in bed. She reports some left ankle pain SP expected but states it is well controlled with as needed pain medication and rest. No history of any distal tingling/numbness. At baseline she states that she lives in her own home and typically ambulates with the use of a cane, she states that she uses a walker on occasion. She denies any antecedent left ankle pain. Her past medical history is significant for hypertension. She denies any other symptoms or concerns at this time. [facility] Disclaimer: The information contained in this section may have been updated after the patient was seen, as this information can be updated by other users. Medical History (Updated 05/17/22 @ 01:48 by Charu Johnson RN) Abnormal electrocardiogram [ECG] [EKG] Breast cancer Elevated hemoglobin Elevated platelet count Hernia HLD (hyperlipidemia) HTN (hypertension) Murmur Surgical History (Updated 05/17/22 @ 01:48 by Charu Johnson RN) H/O breast reconstruction H/O subtotal mastectomy of right breast Family History Other Family history of cancer Hyperlipidemia Lung cancer Social History Smoking Status: Never smoker alcohol intake: never substance use type: denies use current occupational status: retired Travel in the last 8 weeks: None household members: none housing: house current occupational exposures/hazards: No caffeine: Yes Meds Home Medications and Allergies Home Medications Medication Instructions Recorded Confirmed Type calcium carbonate 500 mg-vitamin 1,000 ea PO DAILY Supplement 05/06/17 05/17/22 History D3 2.5 mcg (100 unit) chewable tablet gabapentin 800 mg tablet 800 mg PO QID NERVE DAMAGE-SHINGLES 05/06/17 05/17/22 History pravastatin 40 mg tablet 40 mg PO HS Cholesterol 05/06/17 05/17/22 History aspirin 81 mg tablet,delayed 81 mg PO DAILY #30 tabs 02/12/22 05/17/22 Rx release (Adult Low Dose Aspirin) diltiazem HCl 120 mg 120 mg PO DAILY #30 caps 02/12/22 05/17/22 Rx capsule,extended release 24 hr lisinopril 10 mg tablet 10 mg PO DAILY 90 days #90 tabs 03/05/22 05/17/22 Rx New Prescriptions to Start Prescriptions: Allergies Allergy/AdvReac Type Severity Reaction Status Date / Time No Known Allergies Allergy Verified 03/05/22 11:06 Ortho Exam (Inpt) Vital signs and Labs for Last 24 Hours: Temp Pulse Resp BP Pulse Ox 97.5 F L 77 20 167/57 H 98 05/17/22 08:00 05/17/22 08:00 05/17/22 08:00 05/17/22 08:00 05/17/22 08:00 Laboratory Results - last 24 hr 05/16/22 18:06: WBC 16.0 H, RBC 5.33, Hgb 15.5, Hct 48.4 H, MCV 90.8, MCH 29.1, MCHC 32.1, RDW 16.0, Plt Count 823 H, MPV 9.1, Neut % (Auto) 62.4, Lymph % (Auto) 30.0, [place] % (Auto) 4.4, Eos % (Auto) 2.3, Baso % (Auto) 0.8, Neut # (Auto) 10.0 H, Lymph # (Auto) 4.8 H, [place] # (Auto) 0.7, Eos # (Auto) 0.4, Baso # (Auto) 0.1, Total Counted 100, Neutrophils % (Manual) 59, Lymphocytes % (Manual) 36, Monocytes % (Manual) 4, Eosinophils % (Manual) 1, Platelet Estimate Marked increase, Ovalocytes 1+ 05/16/22 18:06: Sodium 139, Potassium 3.8, Chloride 106, Carbon Dioxide 27, Anion Gap 9.8, BUN 25 H, Creatinine 1.00, Estimated Creat Clear 76, Estim
--- NOTE | 2022-05-17 13:05 | CARE MANAGER ---
Spoke with patient regarding discharge plans, Ms. Blank is going to go home to her house and her daughter is coming to stay with her. I did tell her that MD really would like her to have some home health at home for PT/OT and she states that she does not want it at this time. I also asked about any home equipment needs they may have, she states that she has a walker at home and does not need anything else at this time. This information was forwarded to Dr. Green.
--- NOTE | 2022-05-17 19:25 | PC.NURSE ---
Pt alert and oriented. VSS. Gong for complaint of left ankle pain. Fracture boot in place. Plan for discharge tomorrow after PT consultation
[2022-05-18] VITALS (10 sets, daily range): BP systolic 152–159; BP diastolic 58–66; PULSE 63–77; RESP 18; TEMP 36.7–37.3; O2SAT 96–97; BMI 34.2
--- NOTE | 2022-05-18 04:01 | PC.NURSE ---
PATIENT REQUESTED SLEEPING PILL. NATALIE Toledo NOTIFIED. PATIENT COMPLAINS OF PAIN IN LEFT FOOT. RECEIVED NORCO 5/325MG PO AY 231 FOR ANKLE PAIN 01/21. AT 2152 PATIENT SAID PAIN WAS MAKING HER NAUSEOUS, RECEIVED ZOFRAN 4 MG IV. ORTHO BOOT IN USE. FOOT ELEVATED. ICE PACKS IN USE. HAS PUREWICK. SR ON TELEMETRY. VSS/AFEBRILE.
--- NOTE | 2022-05-18 09:27 | EXP.ACUTE.PN ---
Subjective *Date: 05/18/22 *Time: 09:27 Interval history: Patient did well overnight. However has not been up out of bed. Did get her walking boot through PT yesterday. No respiratory issues. Pain seems well managed. Medical Exam Vital signs and Labs for Last 24 Hours: Vital Signs Temp Pulse Pulse Resp BP Pulse Ox 05/18/22 07:53 98.2 F 75 18 156/60 H 97 05/18/22 04:00 77 05/17/22 20:00 78 05/18/22 00:00 70 05/18/22 04:29 77 05/18/22 00:00 76 05/18/22 00:00 98.2 F 74 18 152/66 H 96 05/17/22 20:00 97 05/17/22 18:27 77 05/17/22 16:00 98.1 F 82 18 152/67 H 97 05/17/22 12:49 80 05/17/22 12:29 98.0 F 61 16 143/71 H 97 Intake and Output 05/17/22 05/18/22 05/18/22 19:59 03:59 11:59 Intake Total 787 / 2036 124 / 2036 Output Total 750 / 1600 450 / 1600 400 / 1600 Balance 37 / 436 -450 / 436 849 / 436 Intake: Intake, Oral Amount 360 / 960 600 / 960 Intake, Total IV Amount 427 / 1076 649 / 1076 0.9 % Sodium Chloride 1,000 ml 427 / 1076 649 / 1076 @ 50 mls/hr IV .Q[facility] Rx#: [id number] Output: Output, Urine Amount 750 / 1600 450 / 1600 400 / 1600 Other: Number of Unmeasured Voids 1 1 1 Weight 235 lb 3.732 oz 231 lb 0.711 oz Patient Weight 05/18/22 11:59 Weight 231 lb 0.711 oz Laboratory Results - last 24 hr 05/17/22 06:07: Magnesium 2.1, Vitamin B12 442, TSH 0.58 I & O for Labs for Last 24 Hours: Intake & Output 05/15/22 05/16/22 05/17/22 05/18/22 11:59 11:59 11:59 11:59 Intake Total 2035 Output Total 1150 / 1150 1600 / 1600 Balance -1150 / -1150 436 / 436 Weight 237 lb 3.478 oz 231 lb 0.711 oz Comment:: Patient is alert, oriented. Talkative. Heart rate regular. Lungs clear. Abdomen soft. Left lower extremity is in a walking boot. Some pain when moving her leg around. Good distal capillary refill Assessment and Plan *Assessment and plan (1) Ankle fracture, left: Status: Acute Category: Medical Code(s): S82.892A - Other fracture of left lower leg, initial encounter for closed fracture (2) Syncope: Status: Acute Category: Medical Code(s): R55 - Syncope and collapse (3) Postherpetic neuralgia: Status: Acute Category: Medical Code(s): B02.29 - Other postherpetic nervous system involvement Plan 1. Ankle fracture-walking boot on per Ortho recommendations. On hydrocodone for pain. Seemingly well controlled 2. Syncope-cardiac work-up has been negative. Cardiology has cleared for discharge from their perspective. However this morning, patient announces to me that her daughter has stated I have to go to [facility]. Apparently this is something the daughter has decided. Neither I nor care management nor nursing staff was aware of this wish on the part of the daughter. The patient is willing to pursue this. I am concerned about patient's safety at home given her ankle boot, and her chronic dizziness which I believe is from her long-term gabapentin use. We have cut back her gabapentin to 600 3 times daily which seems to be well-tolerated. We will get PT involved to see if she would qualify for long-term care and I have notified social work supervisor of the change in plans. 3. Postherpetic neuralgia. Continue gabapentin at lower dose.
--- NOTE | 2022-05-18 15:17 | HMH.PTEV ---
Physical Therapy Evaluation Rehab PT IP Evaluation Start: 05/18/22 09:20 Freq: ONCE Status: Active Protocol: Document 05/18/22 15:01 JOSE (Rec: 05/18/22 15:17 JOSE [id number]) Subjective/History History History Patient is an 81 year old female admitted to [facility] 05/16/22 secondary to syncopal episode resulting distal fibular fracture. She has been placed in a splint from ortho, and PT set up with CAM walker. Patient previously lived at home alone with 3 steps to enter home. Patient and caregiver were both agreeable to DC to SNF for further rehab . She previously required RW for ambulation. Max assist to achieve EOB. Patient refused to attempt sit/stand transfer . Subjective Subjective I just feel like I can't really move my leg. Rehab PT IP Eval Objective Appearance Patient Behavior Appropriate,Cooperative Patient Orientation Person,Place,Birthday Difficulty following instructions none Speech Pattern Clear,Appropriate Ambulation Patient Able to Ambulate No Balance Ability to Arise Unable Sitting Balance Leans or slides in chair Dynamic Sitting Balance Ability Poor Transfers Sit to Stand Bed Transfer Ability Maximum x 1 (75% assist) Pain L ankle Pain Intensity 6 ROM LLE PT ROM Status ABN MMT LLE PT MMT ABN Abnormal MMT Grade 3-/5 Rehab PT IP prob,goals,plan Problems Date of Evaluation: 05/18/22 PT IP Problems Bed Mobility,Transfers,Gait, Balance,Self care,Safety Rehab Potential Rehab Potential Good Plan PT Intervention Plan Bed Mobility,Transfers,Gait, Balance,Self care,Safety, Therapeutic Exercise PT Plan Frequency BID Duration LOS Discharge Goals Bed Transfer Ability Moderate x 1 (50% assist) Sit to Stand Chair Transfer Ability Moderate x 1 (50% assist) Ambulation Assistive Device Rolling Walker Ambulation Distance (feet) 10 Discharge Plan PT Discharge Plan Patient to discharge to SNF once found medically stable by
--- NOTE | 2022-05-18 18:34 | PC.NURSE ---
pt attempted to sit up on side of bed with therapy but was unsuccessful due to reporting dizziness. Pain has been managed well today. no episodes of vomiting. pt and fmaily want her to go to [facility] for rehabilitation due to daughter working through the week and pt requiring additional help with adls. pt is able to wiggle her toes on left foot.
--- NOTE | 2022-05-18 23:28 | PC.NURSE ---
patient complaining of 10/10 pain in left foot up to knee. prn medication given and wasn't helping. notified dr monteiro and received new orders for prn pain medication.
[2022-05-19] VITALS (9 sets, daily range): BP systolic 143–157; BP diastolic 59–96; PULSE 66–85; RESP 16–18; TEMP 36.5–37.1; O2SAT 94–97; BMI 35.6
--- NOTE | 2022-05-19 04:24 | PC.NURSE ---
pt is alert and oriented. complaints of pain in left leg. prn medication was given. IV started leaking, d/c and new IV was placed. Receiving fluids at 50. VSS. Bed alarm on.
--- NOTE | 2022-05-19 08:26 | EXP.ACUTE.PN ---
Subjective *Date: 05/19/22 *Time: 08:26 Interval history: Patient had some increased leg pain last night, we administered 1 dose of hydrocodone 7.5 which seemed to help her and she slept little bit better. This morning she notes her pain is better. PT evaluation yesterday showed that she was significantly impaired and they recommended skilled care evaluation. She is okay with this as her family has realized this is really the best way to go for her. Medical Exam Vital signs and Labs for Last 24 Hours: Vital Signs Temp Pulse Pulse Resp BP Pulse Ox 05/19/22 08:00 97.8 F 69 18 146/96 H 97 05/19/22 04:00 70 05/19/22 00:00 80 05/18/22 23:34 99.1 F 72 18 152/58 H 96 05/18/22 20:00 70 05/18/22 16:00 63 05/18/22 15:45 98.1 F 68 18 159/60 H 97 05/18/22 12:00 67 Intake and Output 05/18/22 05/19/22 05/19/22 19:59 03:59 11:59 Intake Total 1118 / 1718 600 / 1718 Output Total 200 / 1000 600 / 1000 200 / 1000 Balance 918 / 718 -600 / 718 400 / 718 Intake: Intake, Oral Amount 480 / 1080 600 / 1080 Intake, Total IV Amount 638 / 638 0.9 % Sodium Chloride 1,000 ml 638 / 638 @ 50 mls/hr IV .Q20H [facility] Rx#: [id number] Output: Output, Urine Amount 200 / 1000 600 / 1000 200 / 1000 Other: Number of Unmeasured Voids 0 Weight 240 lb 6 oz Patient Weight 05/19/22 11:59 Weight 240 lb 6 oz I & O for Labs for Last 24 Hours: Intake & Output 05/16/22 05/17/22 05/18/22 05/19/22 11:59 11:59 11:59 11:59 Intake Total 2036 / 2036 1718 / 1718 Output Total 1150 / 1150 2000 / 2000 1000 / 1000 Balance -1150 / -1150 36 / 36 718 / 718 Weight 237 lb 3.478 oz 231 lb 0.711 oz 240 lb 6 oz Comment:: Alert. Oriented. Heart rate regular. Lungs clear. Abdomen soft, left lower leg in walking boot. Toes are visible are well-perfused and she can wiggle them without pain. Right leg is without edema and has good perfusion. Assessment and Plan *Assessment and plan (1) Ankle fracture, left: Status: Acute Category: Medical Code(s): S82.892A - Other fracture of left lower leg, initial encounter for closed fracture (2) Syncope: Status: Acute Category: Medical Code(s): R55 - Syncope and collapse (3) Postherpetic neuralgia: Status: Acute Category: Medical Code(s): B02.29 - Other postherpetic nervous system involvement Plan 1. Ankle fracture-walking boot on per Ortho recommendations. On hydrocodone for pain. Seemingly well controlled 2. Syncope-cardiac work-up has been negative. Cardiology has cleared for discharge from their perspective. However this morning, patient announces to me that her daughter has stated I have to go to [place]. Apparently this is something the daughter has decided. Neither I nor care management nor nursing staff was aware of this wish on the part of the daughter. The patient is willing to pursue this. I am concerned about patient's safety at home given her ankle boot, and her chronic dizziness which I believe is from her long-term gabapentin use. We have cut back her gabapentin to 600 3 times daily which seems to be well-tolerated. We will get PT involved to see if she would qualify for long-term care and I have notified psychosocial rehabilitation counselor of the change in plans. 3. Postherpetic neuralgia. Continue gabapentin at lower dose. Plan addendum 05/19/2022-we will increase hydrocodone dose to 7.5 every 4 as needed for breakthrough moderate pain. She will continue the lower dose gabapentin for her chronic postherpetic neuralgia. Social work/care management consultation tomorrow for transfer to long-term care facility. Patient is agreeable to this.
--- NOTE | 2022-05-19 16:58 | PC.NURSE ---
PT IS RESTING IN BED WITH FAMILY IN THE ROOM. ALERT AND ORIENTED X4. PT WAS A MAX ASSIST TO GET UP TO THE SOB WITH STAFF AND PHYSICAL THERAPY. EATING AND DRINKING WELL. LUNG SOUNDS DIMINISHED. ABDOMEN SOFT/NON TENDER WITH ACTIVE BOWEL SOUNDS. WILL CONTINUE TO MONITOR.
[2022-05-20] VITALS: PULSE 70
[2022-05-20 04:00] VITALS: BP 129/53; PULSE 70; PULSE 74; RESP 16; TEMP 36.7; O2SAT 95; BMI 34.7
--- NOTE | 2022-05-20 04:54 | PC.NURSE ---
No changes since previous assessment. Pt medicated for pain PRN in left ankle one time this shift. Pt has had no other complaints. Splint and boot to LLE. Remains on room air. NSR on telemetry.
[2022-05-20 08:00] VITALS: BP 179/64; PULSE 74; PULSE 80; RESP 18; TEMP 36.8; O2SAT 96
--- NOTE | 2022-05-20 08:50 | EXP.ACUTE.PN ---
Subjective *Date: 05/20/22 *Time: 08:50 Interval history: Patient is unchanged, has not had a bowel movement although was given MiraLAX yesterday. Does not have vomiting or significant distention. Her pain is better controlled on slightly higher dose of hydrocodone. Medical Exam Vital signs and Labs for Last 24 Hours: Vital Signs Temp Pulse Pulse Resp BP Pulse Ox 05/20/22 08:00 98.3 F 74 18 179/64 H 96 05/20/22 04:00 98.0 F 74 16 129/53 L 95 05/20/22 04:00 70 05/20/22 00:00 70 05/19/22 23:54 98.2 F 85 16 148/59 H 94 L 05/19/22 20:00 70 05/19/22 19:37 98.4 F 76 18 144/60 H 96 05/19/22 16:00 98.7 F 75 16 157/73 H 97 05/19/22 16:00 75 05/19/22 12:00 74 05/19/22 11:36 97.7 F 66 18 143/71 H 95 Intake and Output 05/19/22 05/20/22 05/20/22 19:59 03:59 11:59 Intake Total 540 / 1329 789 / 1329 Output Total 400 / 900 100 / 900 400 / 900 Balance 140 / 429 -100 / 429 389 / 429 Intake: Intake, Oral Amount 540 / 1020 480 / 1020 Intake, Total IV Amount 309 / 309 0.9 % Sodium Chloride 1,000 ml 309 / 309 @ 50 mls/hr IV .Q20H [facility] Rx#: [id number] Output: Output, Urine Amount 400 / 900 100 / 900 400 / 900 Other: Number of Unmeasured Voids 0 0 0 Weight 234 lb 9 oz Patient Weight 05/20/22 11:59 Weight 234 lb 9 oz I & O for Labs for Last 24 Hours: Intake & Output 05/17/22 05/18/22 05/19/22 05/20/22 11:59 11:59 11:59 11:59 Intake Total 2035 / 2035 1718 / 1718 1329 / 1329 Output Total 1150 / 1150 2000 / 2000 1200 / 1200 900 / 900 Balance -1150 / -1150 36 / 36 518 / 518 429 / 429 Weight 237 lb 3.478 oz 231 lb 0.711 oz 240 lb 6 oz 234 lb 9 oz Comment:: Alert. Oriented. Heart rate regular. Lungs clear. Abdomen soft, left lower leg in walking boot. Toes are visible are well-perfused and she can wiggle them without pain. Right leg is without edema and has good perfusion. Assessment and Plan *Assessment and plan (1) Ankle fracture, left: Status: Acute Category: Medical Code(s): S82.892A - Other fracture of left lower leg, initial encounter for closed fracture (2) Syncope: Status: Acute Category: Medical Code(s): R55 - Syncope and collapse (3) Postherpetic neuralgia: Status: Acute Category: Medical Code(s): B02.29 - Other postherpetic nervous system involvement Plan 1. Ankle fracture-walking boot on per Ortho recommendations. On hydrocodone for pain. Seemingly well controlled 2. Syncope-cardiac work-up has been negative. Cardiology has cleared for discharge from their perspective. However this morning, patient announces to me that her daughter has stated I have to go to [place]. Apparently this is something the daughter has decided. Neither I nor care management nor nursing staff was aware of this wish on the part of the daughter. The patient is willing to pursue this. I am concerned about patient's safety at home given her ankle boot, and her chronic dizziness which I believe is from her long-term gabapentin use. We have cut back her gabapentin to 600 3 times daily which seems to be well-tolerated. We will get PT involved to see if she would qualify for long-term care and I have notified social service coordinator of the change in plans. 3. Postherpetic neuralgia. Continue gabapentin at lower dose. Plan addendum 05/19/2022-we will increase hydrocodone dose to 7.5 every 4 as needed for breakthrough moderate pain. She will continue the lower dose gabapentin for her chronic postherpetic neuralgia. Social work/care management consultation tomorrow for transfer to long-term care facility. Patient is agreeable to this. Addendum for plan 05/20/2022-pain control is good. PT evaluation noted. [place] consultation pending. We will give fleets enema to make sure we have a bowel movement and then plan for discharge today or tomorrow when bed av
--- NOTE | 2022-05-20 08:59 | SW/DCPLANNER ---
Addendum entered by Mary Peña 05/20/22 11:40: Em Fountain stated that she can accept this patient once ready for discharge. stated that he would discharge patient this afternoon if she has a BM. I have updated patient on plan and she is agreeable. Em Fountain stated that patient will not require an additional COVID swab. Original Note: Patient information has been faxed to Em Fountain per patient/family request. Em Fountain is reviewing information and will evaluate patient on campus this AM. Patient is medically stable for discharge.
--- NOTE | 2022-05-20 10:45 | DIET.NUTRFU ---
Addendum entered by Nury Daniels RD, LD 05/20/22 13:02: BM was noted on today Original Note: RD rounded with provider, reported no BM since admit on 05/17, miralax was given last night with no results. Fleet enema to be given today. Plans to go to [place] today for rehab. She is receiving cardiac diet with good appetite.
[2022-05-20 11:44] VITALS: BP 156/70; PULSE 82; RESP 18; TEMP 36.7; O2SAT 97
[2022-05-20 12:00] VITALS: PULSE 80
--- NOTE | 2022-05-20 13:25 | EXP.DC.SUM ---
General Admission date:: 05/17/22 Discharge date: 05/20/22 HPI HPI HPI: Mrs. Blank is an 81 year old female patient admitted to the acute inpatient service after a syncopal episode at home. She states that she was walking to her mailbox when she became dizzy, causing her to fall. She was brought to the [facility] emergency department via EMS. She reported left ankle at that time and subsequent x-ray demonstrated a nondisplaced distal fibular fracture. She was placed in a short leg splint and admitted to the inpatient service for further work-up of her syncope. This morning she is lying comfortably in bed. She reports some left ankle pain SP expected but states it is well controlled with as needed pain medication and rest. No history of any distal tingling/numbness. At baseline she states that she lives in her own home and typically ambulates with the use of a cane, she states that she uses a walker on occasion. She denies any antecedent left ankle pain. Her past medical history is significant for hypertension. She denies any other symptoms or concerns at this time. Hospital Course Hospital Course Hospital Course: Patient was admitted. Cardiology consulted because of her syncopal episode. MRI of brain was nondiagnostic, carotid Dopplers were normal. She had normal echocardiogram from baseline. Cardiology recommended event recorder on discharge. Ortho was consulted because of a fibula fracture, recommended long splint, and follow-up in a week for casting. PT evaluated her and found that she was significantly weak and unable to do weightbearing or activities of daily living on her own. She was agreeable to transfer to a skilled care facility for rehabilitation and [place] [facility] [place] will need PT and OT evaluation. She will need an orthopedic consultation in 1 week. Please note she will be wearing an event monitor for the next 30 days because of her syncope. Please note that her baseline gabapentin has been cut down to 600 mg 3 times daily to avoid dizziness that was not happening in the past. She will be on hydrocodone 7.5 every 4 as needed for severe breakthrough pain from her fracture. We will follow her up on her assisted rounds. Exam Data for Last 24 hours Vital signs and Labs for Last 24 Hours: Temp Pulse Resp BP Pulse Ox 98.0 F 82 18 156/70 H 97 05/20/22 11:44 05/20/22 11:44 05/20/22 11:44 05/20/22 11:44 05/20/22 11:44 I & O for Last 24 hours: Intake & Output 05/18/22 05/19/22 05/20/22 05/21/22 11:59 11:59 11:59 11:59 Intake Total 2035 / 2035 1718 / 1718 1329 / 1329 240 / 240 Output Total 1999 / 1999 1200 / 1200 1350 / 1350 Balance 36 / 36 518 / 518 -21 / -21 240 / 240 Weight 231 lb 0.711 oz 240 lb 6 oz 234 lb 9 oz Constitutional Constitutional: no acute distress *Routine HEENT Exam Head: Present normocephalic Eye: Present EOMI and PERRL ENT: Present mucous membranes moist *Routine Neck Exam Neck: Present supple; Absent lymphadenopathy *Routine Respiratory Exam Respiratory: Present CTA bilaterally *Routine Cardiovascular Exam Cardiovascular: Present RRR *Routine Abdominal Exam Abdominal: Present soft and normoactive bowel sounds; Absent tenderness *Routine Extremities Exam Extremities: Absent cyanosis, clubbing or edema Comments: Left lower leg in a walking boot. Toes are warm and well-perfused *Routine Skin Exam Skin: Present warm; Absent rash *Routine Neurological Exam Neurological: Present alert and oriented X3 Comments: Pleasant, talkative. Cranial nerves are intact. Globally weak but moving all extremities symmetrically DS: Diagnosis Discharge Diagnosis (1) Ankle fracture, left: Status: Acute (2) Syncope: Status: Acute (3) Postherpetic neuralgia: Status: Acute Meds Home Medications and Allergies Home Medications Medication Instructions Recorded Confirmed Type calcium
--- NOTE | 2022-05-20 13:45 | PC.NURSE ---
Current Medications Abhay Benedict 1940 Acetaminophen (Acetaminophen 325mg Tab) 650 mg PO Q4HP PRN PRN Reason: Fever or Mild Pain Stop: 06/16/22 01:22 Last Admin: 05/18/22 22:23 Dose: 650 mg Hydrocodone Bitart/Acetaminophen (Apap/Hydrocodone 325mg/7.5mg Tab) 1 tab PO Q4HP PRN PRN Reason: Breakthru Moderate Pain Stop: 06/18/22 08:24 Last Admin: 05/19/22 22:17 Dose: 1 tab Aspirin (*Pat Own Med* Aspirin Ec 81mg Tablet) 81 mg PO DAILY NATY Stop: 06/17/22 08:59 Last Admin: 05/20/22 08:25 Dose: 81 mg Diltiazem HCl (*Pat Own Med* Diltiazem Er 120mg Capsule) 120 mg PO DAILY NATY Stop: 06/16/22 11:14 Last Admin: 05/20/22 08:24 Dose: 120 mg Enoxaparin Sodium (Enoxaparin 40mg/0.4ml Syringe) 40 mg SQ HS NATY Stop: 06/16/22 20:59 Last Admin: 05/19/22 22:09 Dose: 40 mg Gabapentin (Gabapentin 600mg Tablet) 600 mg PO TID NATY Stop: 06/16/22 12:59 Last Admin: 05/20/22 12:59 Dose: 600 mg Sodium Chloride (Sod Chlor 0.9% 1000ml Bag) 1,000 mls @ 50 mls/hr IV .Q20H NATY Stop: 06/16/22 01:22 Last Admin: 05/19/22 22:18 Dose: 50 mls/hr Lisinopril (*Pat Own Med* Lisinopril 10mg Tablet) 10 mg PO DAILY NATY Stop: 06/16/22 11:59 Last Admin: 05/20/22 08:24 Dose: 10 mg Ondansetron HCl (Ondansetron 4mg/2ml Vial) 4 mg IV Q8HP PRN PRN Reason: Nausea Stop: 06/16/22 01:22 Last Admin: 05/18/22 15:10 Dose: 4 mg Pravastatin Sodium (*Pat Own Med* Pravastatin 40mg Tab) 40 mg PO HS NATY Stop: 06/16/22 20:59 Last Admin: 05/19/22 22:16 Dose: 40 mg Sodium Chloride (Sodium Chloride 0.9% 10ml Flush Syringe) 10 ml IV NEEDED PRN PRN Reason: Maintain IV Site Stop: 06/16/22 01:22
== END 2022-05-20 15:30 ==
LOC: ER 21:09 → 2ND 23:21
PROVIDERS: Emergency Medicine; Admitting Provider Family Medicine; Emergency Provider Emergency Medicine; PCP Nurse Practitioner Family; Visit Provider Internal Medicine Adolescent Medicine
DX: S82.434A Nondisplaced oblique fracture of shaft of right fibula, initial encounter for closed fracture (principal); R55 Syncope and collapse; I10 Essential (primary) hypertension; E78.2 Mixed hyperlipidemia; B02.29 Other postherpetic nervous system involvement; W01.0XXA Fall on same level from slipping, tripping and stumbling without subsequent striking against object, initial encounter; Y92.017 Garden or yard in single-family (private) house as the place of occurrence of the external cause
CPT/HCPCS: 29515; G0378; 36415; 70544; 73590; 73610; 73630; 80048; 80053; 81001; 82607; 82962; 83735; 84443; 84484; 85007; 85025; 93005; 93306; 93880; 97110; 97163; 97530; 97760; 99285; C9803; J2405; U0003; U0005

== ENCOUNTER → 2022-05-24 12:16 | Outpatient (CLI) | payer MEDICARE, OTHER, SELFPAY ==
--- NOTE | 2022-05-24 12:22 | XR_ITS ---
FINAL REPORT CLINICAL HISTORY: ankle fracture COMPARISON: 05/17/2022 FINDINGS: LEFT ANKLE Three views of the left ankle were obtained. There is a splint seen overlying a nondisplaced fracture of the distal fibula. No other fracture is identified. The visualized joint spaces are normally aligned. The soft tissues are unremarkable. IMPRESSION: Nondisplaced fracture of the distal fibula. Reviewed, Interpreted and Dictated by Hugh Bates MD Transcribed by Mame Sutton Authenticated and [facility]
== END ==
PROVIDERS: PCP Internal Medicine Adolescent Medicine; Visit Provider Orthopaedic Surgery
DX: S82.892A Other fracture of left lower leg, initial encounter for closed fracture (principal)
CPT/HCPCS: 73610

== ENCOUNTER → 2022-06-14 11:39 | Outpatient (CLI) | payer MEDICARE, OTHER, SELFPAY ==
--- NOTE | 2022-06-14 11:45 | XR_ITS ---
FINAL REPORT CLINICAL HISTORY: fracture COMPARISON: 05/24/2022 FINDINGS: Left ankle Three views were obtained. There has been some interval healing of the previously seen spiral fracture of the medial malleolus. No acute osseous abnormality is identified. There is improved soft tissue edema. IMPRESSION: Interval healing of the medial malleolar fracture. Reviewed, Interpreted and Dictated by Sabi Hawkins MD Transcribed by Spring Hicks Authenticated and [facility]
== END ==
PROVIDERS: PCP Internal Medicine Adolescent Medicine; Visit Provider Orthopaedic Surgery
DX: S82.892A Other fracture of left lower leg, initial encounter for closed fracture (principal)
CPT/HCPCS: 73610

== ENCOUNTER 2022-06-28 22:08 | Emergency (ER) | payer MEDICARE, OTHER, SELFPAY ==
[2022-06-28 21:02] VITALS: BMI 30.9
--- NOTE | 2022-06-28 22:07 | PC.NURSE ---
RULE'D OUT FOR JEFFRY: SPOKE WITH BRENDA SAINZ;
--- NOTE | 2022-06-28 22:26 | HMH.EDCPR ---
Discharge Plan Disposition Patient Disposition: Date/Time: 06/28/22 21:27 Clinical Impressions Clinical Impression: Cardiopulmonary arrest Discharge ED Provider: Gurwinder (ED)Brian CPR HPI General Stated Complaint: paolo Time Seen by Provider: 06/28/22 22:10 Mode of Arrival: EMS Source of Information: EMS and Medical Record Limitations: Physical Limitations History of Present Illness HPI narrative: code 500 - sudden change at ecf with possible sz and then was noted to be apnea and no pulse and code was started and brought to [facility] ed MD complaint: stopped breathing Associated injuries: No Related Data Home Medications Medication Instructions Recorded Confirmed calcium carbonate 500 mg-vitamin 1,000 ea PO DAILY Supplement 05/06/17 06/07/22 D3 2.5 mcg (100 unit) chewable tablet pravastatin 40 mg tablet 40 mg PO HS Cholesterol 05/06/17 06/07/22 Previous Rx's Medication Instructions Recorded aspirin 81 mg tablet,delayed 81 mg PO DAILY #30 tabs 02/12/22 release (Adult Low Dose Aspirin) diltiazem HCl 120 mg 120 mg PO DAILY #30 caps 02/12/22 capsule,extended release 24 hr lisinopril 10 mg tablet 10 mg PO DAILY 90 days #90 tabs 03/05/22 gabapentin 600 mg tablet 600 mg PO TID #90 tabs 05/20/22 hydrocodone 7.5 mg-acetaminophen 1 tab PO Q6H PRN pain #30 tabs 05/20/22 325 mg tablet Allergies Allergy/AdvReac Type Severity Reaction Status Date / Time No Known Allergies Allergy Verified 06/14/22 12:34 [facility] Code Documentation Arrest Information Outside of Hospital The Code Document Section documentation for [id number] Marichuy Blank was populated with data that defaulted in from the panel monitor in the Code Assessment on f_Reg Service Date] to provide within this report, the status and treatment of the patient in the ED during a Code. This documentation will be supplemented with my direct findings within the body of the report. Date Treatment Initiated: 06/28/22 Time Treatment Initiated: 20:49 Treatment Initiated By: EMS Location of Arrest[place] [facility] [place] Arrest Witnessed: Yes (per ems) Estimated Down Time: 0 Arrest Information in Hospital Date of Arrest: 06/28/22 Time of Arrest: 20:51 Other [facility] Type of Arrest In-house: Cardiac In-house Arrest Witnessed: Yes - Monitored ALS Code Inititation ALS Initiated By: EMS ALS Type: ACLS ALS Initiated Start Time: 20:49 Patient Condition At Code Start Condition of Patient at Start of Code: Pulseless, Apneic and Unconscious Monitoring Devices: ECG Monitor, Pulse Oximeter and Apnea Monitor Circulation Initial Cardiac Rhythm: PEA Oxygenation Oxygen Breathing Status: Apneic Labs Fingerstick Blood Glucose: 274 Code End Time Code Ended: 21:27 Patient Successfully Resuscitated: No Reason Code Ended: - Efforts Terminated Family Members Present During Code: No (arrived following calling of TOD.) Names of All Individuals Present at Code: MILVIA,RN;LEAHRN;EVELYNRN;AVA MALDONADO-P;JOSYEMT;MS GURWINDER MD;SHARDART; MAGO CURRY, INFORMATION RESOURCE CONSULTANT; SHARDA ALONZO RN; EZEQUIEL SUTTON, JIN,LAB; VIC,RADIOLOGY Patient Expiration Date: 06/28/22 Expiration Time: 21:27 Pronounced by: MS GURWINDER MD Time Pronounced: 21:27 Post Mortem Care Provided: Yes Attending Physician Called: Yes Bowling Alley Attendant Case: No Bowling Alley Attendant Notified: Yes (YES) Bowling Alley Attendant Notification Date: 06/28/22 Bowling Alley Attendant Notification Time: 21:35 [facility] Disclaimer: The information contained in this section may have been updated after the patient was seen, as this information can be updated by other users. Medical History Abnormal electrocardiogram [ECG] [EKG] Breast cancer Elevated hemoglobin Elevated platelet count Hernia HLD (hyperlipidemia) HTN (hypertension) Murmur Surgical History H/O breast reconstruction H/O
== END 2022-06-28 23:23 | disposition expired ==
PROVIDERS: Emergency Provider Emergency Medicine; PCP Internal Medicine Adolescent Medicine
DX: I46.9 Cardiac arrest, cause unspecified (principal)
CPT/HCPCS: 92950; 99283